=== PATIENT | female | born 1950 | race Caucasian/White ===

== ENCOUNTER 2016-10-10 08:56 | Outpatient (CLI) | payer MEDICARE, OTHER | END 2016-10-10 08:57 | disposition home or self-care (01) | DX: E10.9 Type 1 diabetes mellitus without complications (principal); E78.5 Hyperlipidemia, unspecified; I25.10 Atherosclerotic heart disease of native coronary artery without angina pectoris ==

== ENCOUNTER 2016-10-16 10:13 | Outpatient (CLI) | payer MEDICARE | END 2016-10-16 10:14 | disposition home or self-care (01) | DX: Z12.31 Encounter for screening mammogram for malignant neoplasm of breast (principal) ==

== ENCOUNTER 2017-12-23 08:19 | Outpatient (CLI) | payer MEDICARE ==
[2017-12-23 12:10] LABS: ALBUMIN 3.9 g/dL (3.2-5.5); ALBUMIN/GLOBULIN RATIO 1.4 (1.0-2.2); ALKALINE PHOSPHATASE 68 IU/L (42-121); ALT ALANINE AMINOTRANSFERASE 11 IU/L (10-60); AST ASPARTATE AMINOTRANSFERASE 12 IU/L (10-42); BILIRUBIN,TOTAL 0.4 mg/dL (0.2-1.0); BUN - BLOOD UREA NITROGEN 12 mg/dL (6-20); CALCIUM 8.7 mg/dL (8.5-10.3); CARBON DIOXIDE - CO2 25 mmol/L (21-32); CHLORIDE 104 mmol/L (101-111); CHOL/HDL RATIO 3.9 (<4.4); CHOLESTEROL 144 mg/dL; CREATININE 0.7 mg/dL (0.4-1.0); GFR - MDRD 83 (>89); GLUCOSE 112 mg/dL (70-100); HDL CHOLESTEROL 37 mg/dL; LDL CHOLESTEROL,CALCULATED 84 mg/dL; LDL/HDL RATIO 2.3 (<4.4); SODIUM 137 mmol/L (135-145); TOTAL PROTEIN 6.6 g/dL (6.7-8.2); VLDL CHOLESTEROL 23 mg/dL
[2017-12-23 13:23] LABS: HB2 TOTAL 13.3 g/dL; HEMOGLOBIN A1C 0.5 g/dL; HEMOGLOBIN A1C % 5.6 % (4.6-6.2)
== END 2017-12-23 08:20 | disposition home or self-care (01) ==
LOC: LAB 08:19
PROVIDERS: ATTEND Nurse Practitioner Family
DX: E11.9 Type 2 diabetes mellitus without complications (principal); I10 Essential (primary) hypertension; E78.5 Hyperlipidemia, unspecified
CPT/HCPCS: 36415; 80053; 80061; 82043; 83036; 83721

== ENCOUNTER 2019-02-23 08:25 | Outpatient (CLI) | payer MEDICARE ==
[2019-02-23 10:47] LABS: BASOPHILS % (AUTO) 0.5 %; EOSINOPHILS # (AUTO) 0.2 10^3/uL (0.0-0.7); EOSINOPHILS % (AUTO) 2.7 %; HGB - HEMOGLOBIN 12.9 g/dL (12.0-16.0); LYMPHOCYTES # (AUTO) 1.6 10^3/uL (1.5-3.5); LYMPHOCYTES % (AUTO) 19.2 %; MEAN CORPUSCULAR HEMOGLOBIN 31.3 pg (27.0-31.0); MEAN CORPUSCULAR HGB CONC 33.7 g/dL (32.0-36.0); MEAN CORPUSCULAR VOLUME 92.8 fL (81.0-99.0); MEAN PLATELET VOLUME 7.8 fL (7.9-10.8); MONOCYTES # (AUTO) 0.5 10^3/uL (0.0-1.0); MONOCYTES % (AUTO) 5.9 %; NEUTROPHILS # (AUTO) 6.1 10^3/uL (1.5-6.6); NEUTROPHILS % (AUTO) 71.7 %; PLT - PLATELET COUNT 249 10^3/uL (130-450); RED BLOOD COUNT 4.11 10^6/uL (4.20-5.40); WHITE BLOOD COUNT 8.5 x10^3/uL (4.8-10.8)
[2019-02-23 10:59] LABS: ALBUMIN 3.9 g/dL (3.2-5.5); ALBUMIN/GLOBULIN RATIO 1.4 (1.0-2.2); ALKALINE PHOSPHATASE 78 IU/L (42-121); ALT ALANINE AMINOTRANSFERASE 12 IU/L (10-60); AST ASPARTATE AMINOTRANSFERASE 15 IU/L (10-42); BILIRUBIN,TOTAL 0.3 mg/dL (0.2-1.0); BUN - BLOOD UREA NITROGEN 21 mg/dL (6-20); CARBON DIOXIDE - CO2 27 mmol/L (21-32); CHLORIDE 103 mmol/L (101-111); CHOL/HDL RATIO 4.6 (<4.4); CHOLESTEROL 169 mg/dL; CREATININE 0.8 mg/dL (0.4-1.0); GFR - MDRD 71 (>89); GLUCOSE 123 mg/dL (70-100); HDL CHOLESTEROL 37 mg/dL; LDL CHOLESTEROL,CALCULATED 108 mg/dL; LDL/HDL RATIO 2.9 (<4.4); SODIUM 139 mmol/L (135-145); TOTAL PROTEIN 6.7 g/dL (6.7-8.2); VLDL CHOLESTEROL 24 mg/dL
[2019-02-23 13:40] LABS: HB2 TOTAL 13.2 g/dL; HEMOGLOBIN A1C 0.58 g/dL; HEMOGLOBIN A1C % 6.2 % (4.6-6.2)
== END 2019-02-23 08:26 | disposition home or self-care (01) ==
LOC: LAB.F 08:25
PROVIDERS: ATTEND Nurse Practitioner
DX: E11.9 Type 2 diabetes mellitus without complications (principal); E78.5 Hyperlipidemia, unspecified
CPT/HCPCS: 36415; 80053; 80061; 82043; 83036; 83721; 85025

== ENCOUNTER 2019-12-03 09:05 | Outpatient (CLI) | payer MEDICARE ==
--- NOTE | 2019-12-07 09:38 | Mammography Report ---
Reason: ROUTINE MAMMO Procedure Date: 12/03/2019 Accession Number: [id number] / [id number] Procedure: CASEY - Screening Mammo w/Stew CPT Code: Final Report FULL RESULT: EXAM: Screening Mammo w/Stew DATE: 12/03/2019 10:04 AM CLINICAL HISTORY: Screening encounter. TECHNIQUE: (B) - Bilateral CC, laterally exaggerated CC, MLO views were obtained. COMPARISON: 10/16/2016 through 07/16/2013. PARENCHYMAL PATTERN: (D) - The breast(s) demonstrate(s) heterogeneously dense fibroglandular parenchyma. FINDINGS: There are no suspicious masses, calcifications, or areas of distortion. IMPRESSION: Negative examination. BI-RADS category 1. RECOMMENDATION: (ANNUAL) - Recommend routine annual screening mammography. BI-RADS CATEGORY: (1) - Negative. STANDARD QUALIFYING STATEMENTS: 1. This examination was not reviewed with the aid of Computer-Aided Detection (CAD). 2. A negative or benign imaging report should not preclude biopsy if clinically suspicious findings are present. 3. Dense breasts may obscure an underlying neoplasm. 4. This examination was reviewed with the aid of 3D breast imaging (tomosynthesis).
== END 2019-12-03 09:06 | disposition home or self-care (01) ==
LOC: DI 09:05
PROVIDERS: ATTEND Family Medicine
DX: Z12.31 Encounter for screening mammogram for malignant neoplasm of breast (principal)
CPT/HCPCS: 77063; 77067

== ENCOUNTER 2019-12-03 09:11 | Outpatient (CLI) | payer MEDICARE ==
--- NOTE | 2019-12-07 12:59 | DEXA Report ---
Reason: MENOPAUSAL Procedure Date: 12/03/2019 Accession Number: [id number] / [id number] Procedure: DEX - Dexa Spine and/or Hip CPT Code: Final Report FULL RESULT: EXAM: Dexa Spine and/or Hip DATE: 12/03/2019 10:03 AM CLINICAL HISTORY: MENOPAUSAL TECHNIQUE: Dual energy x-ray absorptiometry (DXA) was performed on a TouchLocal System. Regions measured are the AP Spine, femoral neck, and if needed forearm. COMPARISON: None. In accordance with the International Society for Clinical Densitometry (ISCD) guidelines, data from previous exams may be reanalyzed using current recommendations and techniques. This is done to allow a more accurate basis for comparison with the current study. FINDINGS: The data for the lumbar spine is as follows: BMD (g/cm/cm) T-SCORE Z-SCORE REGION L1 1.098 -0.3 1.1 L2 1.169 -0.3 1.1 L3 1.373 1.4 2.8 L4 1.466 2.2 3.6 TOTAL 1.287 0.9 2.3 NOTE: All evaluable vertebrae are used for classification The data for the hip is as follows: BMD (g/cm/cm) T-SCORE Z-SCORE REGION Neck 0.798 -1.7 -0.3 TOTAL 0.853 -1.2 0.0 NOTE: The femoral neck or total proximal femur, whichever is lowest, is used for classification. IMPRESSION: THE WHO CLASSIFICATION BASED ON THE INTERNATIONAL REFERENCE STANDARD IS OSTEOPENIA. THE FRACTURE RISK IS INCREASED. RECOMMENDATION: Patients with diagnosis of osteoporosis or osteopenia should have regular bone mineral density assessment. For those eligible for Medicare, routine testing is allowed once every 2 years. Testing frequency can be increased for patients who have rapidly progressing disease or for those who are receiving medical therapy to restore bone mass. COMMENT: World Health Organization (WHO) definitions for osteoporosis and osteopenia: NORMAL BMD: T-score at -1.0 or higher, fracture risk is low OSTEOPENIA BMD: T-score between -1.0 and -2.5, fracture risk is increased. OSTEOPOROSIS BMD: T-score at -2.5 or lower, fracture risk is high. National Osteoporosis Foundation recommends: 1. Obtain adequate dietary calcium (at least 1200 mg per day) and vitamin D (400-800 international units per day). 2. Participate, as appropriate, in regular weightbearing and muscle-strengthening exercise. 3. Avoid tobacco use and reduce alcohol and caffeine intake. 4. For more detailed information see the website at www.NOF.org.
== END 2019-12-03 09:12 | disposition home or self-care (01) ==
LOC: DI 09:11
PROVIDERS: ATTEND Family Medicine
DX: M85.88 Other specified disorders of bone density and structure, other site (principal)
CPT/HCPCS: 77080

== ENCOUNTER 2022-06-22 14:40 | Outpatient (CLI) | payer MEDICARE ==
--- NOTE | 2022-06-22 16:45 | CT Report ---
PROCEDURE: Low Dose Lung Cancer Screen INDICATIONS: SMOKER TECHNIQUE: Noncontrast low-dose axial images were acquired from the pulmonary apices to the posterior costophren ic angles. Multiplanar MIP reformats were then reconstructed. For radiation dose reduction, the follo wing was used: automated exposure control, adjustment of mA and/or kV according to patient size. COMPARISON: None. FINDINGS: Image quality: Excellent. Lungs and pleura: Imaging findings shows multiple bilateral pulmonary nodules. The largest nodule on on the right measures approximately 9 mm. Given the imaging findings I would recommend follow-up non contrast chest CT in approximately 3 months to assess for any significant change. There is mild to moderate emphysematous changes are noted throughout both lungs. No focal lung infilt rate is seen. Mediastinum: Heart size is normal. No pericardial effusion. There is an enlarged precarinal lymph n ode measuring 2.6 cm in maximal dimension. Thoracic aorta and central pulmonary arteries are normal i n size. Esophagus is normal in caliber. No hiatal hernia. Bones and chest wall: No suspicious bony lesions. No vertebral body compression fractures. No axil faby or supraclavicular adenopathy by size criteria. Abdomen: Visualized upper abdominal viscera shows a small atrophic-appearing left kidney. Coronary artery atherosclerotic calcifications are present. There is a right-sided axillary femoral bypass graft incompletely visualized. IMPRESSION: Multiple bilateral pulmonary nodular densities. The largest on the right measures 9 mm in maximal dim ension. Given the imaging findings I would recommended short interval follow-up noncontrast chest CT in 3 months to assess for any significant change. 2. Enlarged precarinal lymph node measuring 2.6 cm in maximal dimension. This could also be reevaluat ed at time of CT reimaging. 3. Mild to moderate emphysematous changes noted throughout both lungs. 4. Coronary artery and atherosclerotic change. 5. Atrophic left kidney. 6. Right-sided axillary femoral bypass graft. Reviewed by: Balaji Gallego MD on 06/22/2022 4:44 PM PDT Approved by: Balaji Gallego MD on 06/22/2022 4:44 PM PDT Station ID: [id number]
== END 2022-06-22 14:41 | disposition home or self-care (01) ==
LOC: DI 14:40
PROVIDERS: ATTEND Physician Assistant
DX: Z12.2 Encounter for screening for malignant neoplasm of respiratory organs (principal); F17.210 Nicotine dependence, cigarettes, uncomplicated; R91.8 Other nonspecific abnormal finding of lung field; R59.0 Localized enlarged lymph nodes; J43.9 Emphysema, unspecified; I25.10 Atherosclerotic heart disease of native coronary artery without angina pectoris; N26.1 Atrophy of kidney (terminal); Z95.1 Presence of aortocoronary bypass graft

== ENCOUNTER 2022-09-13 10:42 | Outpatient (CLI) | payer MEDICARE ==
--- NOTE | 2022-09-13 17:24 | CT Report ---
PROCEDURE: CHEST WO INDICATIONS: LUNG NODULES TECHNIQUE: Noncontrast 1mm axial images were acquired from the pulmonary apices to the posterior costophrenic an gles. Axial 5 mm soft tissue kernel reconstructions were performed as well as 8 mm axial MIP and cor onal and sagittal 5 mm reformations. For radiation dose reduction, the following was used: automate d exposure control, adjustment of mA and/or kV according to patient size. COMPARISON: 06/22/2022 FINDINGS: Image quality: Excellent. Lungs and pleura: Multiple solid appearing bilateral pulmonary nodules are seen. 5 mm anterior right upper lobe nodule series 4 image 109 unchanged. 4 mm lateral right upper lobe nodule series 4 image 111 unchanged. 9 mm oval nodule in anterior right lower lobe adjacent to minor fissure series 4 image 156 unchanged. 4 mm solid nodule adjacent to anterior lateral pleura of left upper lobe series 4 image 177, unchange d. 3 mm solid nodule in posterior lateral left lower lobe adjacent to pleura series 4 image 210, unchang ed There is mild to moderate centrilobular emphysema. Dependent atelectasis and scarring in posterior an d lateral periphery of bilateral lung carver are seen. No pleural effusions or pneumothorax. Central and peripheral airways are patent and normal in caliber. Mediastinum: Heart size is normal. No pericardial effusion. Mildly prominent mediastinal lymph node s are seen measures up to 1 cm in short axis diameter in precarinal space series 3 image 25. Mild to moderate atherosclerotic calcifications are noted in coronary vessels. Thoracic aorta and central pul monary arteries are normal in size. Right-sided bypass graft is noted. Esophagus is normal in calibe r. No hiatal hernia. Bones and chest wall: No suspicious bony lesions. No vertebral body compression fractures. No axil faby or supraclavicular adenopathy by size criteria. The thyroid is normal in size and there are no incidental findings. Abdomen: Visualized upper abdominal solid organs and bowel loops appear normal in the absence of con trast. IMPRESSION: 1. Stable subcentimeter solid nodules in bilateral lung carver unchanged from previous study. Additio nal CT chest follow-up in 12 month is recommended to further establish stability. 2. Mild to moderate centrilobular emphysema. Bibasilar scarring/atelectasis. No pleural effusion or p neumothorax. Airway is patent. 3. Nonspecific mildly enlarged mediastinal lymph nodes as above, suggest clinical correlation. CLINICAL RECOMMENDATION STATEMENTS: In patients <35 years with an ITN detected on CT, MRI, or extrathyroidal ultrasound, the Committee re commends further evaluation with dedicated thyroid ultrasound if the nodule is "e1 cm and has no susp icious imaging features, and if the patient has normal life expectancy. In patients "e35 years with an ITN detected on CT, MRI, or extrathyroidal ultrasound, the Committee r ecommends further evaluation with dedicated thyroid ultrasound if the nodule is "e1.5 cm and has no s uspicious imaging features, and if the patient has normal life expectancy. (ACR, 2014) Reviewed by: Heladio Lebron MD on 09/13/2022 5:22 PM PST Approved by: Heladio Lebron MD on 09/13/2022 5:22 PM PST Station ID: [id number]
== END 2022-09-13 10:43 | disposition home or self-care (01) ==
LOC: DI 10:42
PROVIDERS: ATTEND Physician Assistant
DX: R91.8 Other nonspecific abnormal finding of lung field (principal); J43.2 Centrilobular emphysema; R59.0 Localized enlarged lymph nodes; J98.11 Atelectasis

== ENCOUNTER 2023-10-03 09:12 | Outpatient (CLI) | payer MEDICARE ==
--- NOTE | 2023-10-04 11:47 | Ultrasound Report ---
LIMITED ULTRASOUND OF LEFT BREAST: 10/03/2023 CLINICAL: Palpable left breast lump. Comparison is made to exams dated: 10/03/2023 mammogram, 06/22/2022 mammogram, 12/03/2019 mammogram - [facility], 10/16/2016 mammogram, and 07/16/2013 mammogram - [facility]. Real-time ultrasound of the left breast 10 o'clock region was performed. Stewart scale images of the re al-time examination were reviewed. No significant abnormalities were seen sonographically in the left breast. IMPRESSION: NEGATIVE There is no sonographic evidence of malignancy at the palpable abnormality. Exam findings were conveyed to the patient. Patient is advised to monitor for significant change. Cli nical follow-up as needed. A 1 year screening mammogram is recommended. This exam was interpreted at Station ID: [id number]. Electronically Signed By: Fly An M.D. slc/:10/03/2023 10:03:09 Ultrasound BI-RADS: 1 Negative BI-RADS CATEGORY: (1) - 1 Mammogram [id number] 1 year screening LATERALITY: (B)
--- NOTE | 2023-10-04 11:47 | Mammography Report ---
BILATERAL DIGITAL DIAGNOSTIC MAMMOGRAM 3D/2D: 10/03/2023 CLINICAL: Palpable left breast lump. Due for bilateral exam. Comparison is made to exams dated: 06/22/2022 mammogram, 12/03/2019 mammogram - [facility], 10/16/2016 mammogram, and 07/16/2013 mammogram - [facility]. Both breasts are heterogeneously dense, which may obscure small masses (category c / 51-75% glandular tissue). No significant masses, calcifications, or other findings are seen in either breast. IMPRESSION: INCOMPLETE: NEEDS ADDITIONAL IMAGING EVALUATION No mammographic evidence of malignancy. A targeted ultrasound is recommended and will immediately follow. Based on the Tyrer Cuzick model (a risk assessment model) the patients lifetime risk is 5.7% and her 10 year risk is 4.3%. According to the ACR, ACS, and NCCN guidelines, an annual breast MRI exam thais g with mammogram is recommended if the patients lifetime risk is 20% or greater. This exam was interpreted at Station ID: [id number]. NOTE: For mammograms, a report in lay terms will be sent to the patient. Approximately 15% of breast malignancies will not be visualized mammographically. In the management of a palpable breast mass, a negative mammogram must not discourage biopsy of a clinically suspicious lesion. Electronically Signed By: Fly An M.D. slc/:10/03/2023 09:48:53 ACR BI-RADS Category 0: Incomplete 3340F PARENCHYMAL PATTERN: (D) - The breast(s) demonstrate(s) heterogeneously dense fibroglandular yadira valera. BI-RADS CATEGORY: (0) - 0 Ultrasound [id number] Immediate follow-up LATERALITY: (B)
== END 2023-10-03 09:13 | disposition home or self-care (01) ==
LOC: DI 09:12
PROVIDERS: ATTEND Physician Assistant
DX: N64.4 Mastodynia (principal)

== ENCOUNTER 2023-10-03 09:13 | Outpatient (CLI) | payer MEDICARE ==
--- NOTE | 2023-10-03 12:22 | CT Report ---
PROCEDURE: CHEST WO INDICATIONS: MULTIPLE LUNG NODULES TECHNIQUE: Noncontrast 1mm axial images acquired from the pulmonary apex to the posterior costophrenic angles in the supine end-inspiration, supine end-expiration, and prone end-inspiration positions. Axial 5 mm soft tissue kernel reconstructions were performed as well as 8 mm axial MIP and coronal and sagittal 5 mm reformations. For radiation dose reduction, the following was used: automated exposure control , adjustment of mA and/or kV according to patient size. COMPARISON: CT chest, 09/13/2022 and 06/22/2022. FINDINGS: Image quality: Excellent. Lungs: There are multiple pulmonary nodules bilaterally, significantly increased compared to the last exam, particularly in both upper lobes where most nodules are new. Previously seen nodules are, stoll karma, unchanged. Subpleural septal thickening bilaterally. There is moderate centrilobular emphysema. No focal consolidation. Pleura: No pleural effusions or pneumothorax. Mediastinum: Heart size is normal. No pericardial effusion. No large vessel abnormality. Mild mediast inal adenopathy by size criteria. For example, there is a 1.6 x 2.2 cm precarinal lymph node, increas ed in size (previously measuring 1.3 x 1.6 cm. There is bilateral hilar prominence suspicious for lym phadenopathy. Chest wall and lower neck: Thyroid is unremarkable. No axillary or supraclavicular adenopathy by size . There is a subclavian stent. Bones: No aggressive osseous abnormality. Upper Abdomen: There is severe left renal atrophy. Mild left hydronephrosis IMPRESSION: 1. Multiple pulmonary nodules are present bilaterally, significantly increased compared to the last e xam. The nodules are predominantly involving upper lobes. There is subpleural septal thickening bilat erally. An inflammatory or infectious etiology is favored. Recommend clinical correlation and a short -term follow-up CT in 3 months after adequate treatment. 2. Moderate emphysema. 3. Mild mediastinal lymphadenopathy and suspected bilateral hilar lymphadenopathy, increased compared to the last exam. This can be followed on follow-up imaging. 4. Severe left renal atrophy and mild left hydronephrosis. Reviewed by: Alice Villalobos MD on 10/03/2023 12:21 PM PST Approved by: Alice Villalobos MD on 10/03/2023 12:21 PM PST Station ID: [id number]
== END 2023-10-03 09:14 | disposition home or self-care (01) ==
LOC: DI 09:13
PROVIDERS: ATTEND Registered Nurse
DX: R91.8 Other nonspecific abnormal finding of lung field (principal); J43.9 Emphysema, unspecified; R59.0 Localized enlarged lymph nodes; N13.30 Unspecified hydronephrosis; N26.1 Atrophy of kidney (terminal)